=== PATIENT | female | born 1935 | race Asian ===

== ENCOUNTER 2020-08-24 02:20 | Emergency (ER) | payer OTHER ==
[~2020-08-24] VITALS: Ht 162.6 cm; Wt 68.0 kg
[2020-08-24 02:26] VITALS: BP 172/93
[2020-08-24] MEDS ORDERED: hydrALAZINE 20 MG/ML VIAL IVP ONE (03:00)
[2020-08-24] MEDS ORDERED: ENALAPRILAT 2.5 MG/2 ML VIAL IVP ONE (03:00)
[2020-08-24 03:15] LABS: BASOPHILS # (AUTO) 0.1 K/uL (0.00-0.22); BASOPHILS % (AUTO) 0.9 % (0.0-2.0); EOSINOPHILS # (AUTO) 0.3 K/uL (0-0.4); EOSINOPHILS % (AUTO) 2.4 % (0.0-4.0); HEMATOCRIT 39.8 % (36-48); HEMOGLOBIN 13.7 g/dL (12.0-16.0); LYMPHOCYTES # (AUTO) 2.7 K/uL (2.5-16.5); LYMPHOCYTES % (AUTO) 24.5 % (20.5-51.1); MEAN CORPUSCULAR HEMOGLOBIN 32 pg (27-31); MEAN CORPUSCULAR HGB CONC 35 g/dL (33-37); MEAN CORPUSCULAR VOLUME 93.8 fL (80-94); MONOCYTES # (AUTO) 0.8 K/uL (0.8-1.0); MONOCYTES % (AUTO) 7.3 % (1.7-9.3); NEUTROPHILS # (AUTO) 7.1 K/uL (1.8-7.7); NEUTROPHILS % (AUTO) 64.9 % (42.2-75.2); PLATELET COUNT (AUTO) 358 K/uL (140-450); RED BLOOD CELL COUNT(AUTO) 4.25 MIL/uL (4.20-5.40); RED CELL DISTRIBUTION WIDTH 13.5 % (11.6-13.7); WHITE BLOOD COUNT (AUTO) 10.9 K/uL (4.8-10.8)
[2020-08-24 03:31] LABS: ALBUMIN 3.9 g/dL (3.4-5.0); ANION GAP 12.1 (8-16); ASPARTATE AMINOTRANSFERASE 15 U/L (15-37); CARBON DIOXIDE 30.8 mmol/L (21-32); CHLORIDE 98 mmol/L (98-107); CHOL/HDL RATIO 4.2 (1-4.5); CREATININE 0.8 mg/dL (0.6-1.3); GLUCOSE 164 mg/dL (74-106); HDL CHOLESTEROL 50 mg/dL (40-60); LDL (CALC) 137 mg/dL (60-100); POTASSIUM 3.9 mmol/L (3.5-5.1); SODIUM SERUM 137 mmol/L (136-145); TOTAL BILIRUBIN 0.5 mg/dL (0.0-1.0); TRIGLYCERIDES 115 mg/dL (30-150); UREA NITROGEN, BLOOD 17 mg/dL (7-18)
[2020-08-24 04:02] LABS: APPEARANCE,URINE CLEAR (CLEAR); BILIRUBIN,URINE NEGATIVE (NEGATIVE); BLOOD, URINE TRACE-I (NEGATIVE); COLOR,URINE YELLOW (YELLOW); LEUKOCYTE ESTERASE ,URINE NEGATIVE (NEGATIVE); NITRITE, URINE NEGATIVE (NEGATIVE); UGLUCOSE NEGATIVE (NEGATIVE)
[2020-08-24] MEDS ORDERED: HYDR-39 PO (04:11)
[2020-08-24] MEDS ORDERED: SIMV-33 PO (04:11)
[2020-08-24 04:25] VITALS: BP 135/78
== END 2020-08-24 04:23 | disposition home or self-care (01) ==
LOC: MED 02:20
DX: I10 Essential (primary) hypertension (principal); E78.5 Hyperlipidemia, unspecified; R51.9 Headache, unspecified; Z88.0 Allergy status to penicillin; Z79.899 Other long term (current) drug therapy
CPT/HCPCS: 36415; 80053; 80061; 81003; 85025; 93005; 96374; 96375; 99284; J0360; J3490

== ENCOUNTER 2020-09-11 20:50 | Emergency (ER) | payer OTHER ==
[~2020-09-11] VITALS: Ht 162.6 cm; Wt 68.0 kg
[~2020-09-11 20:50] MED LIST: HYDR-39 PO; SIMV-33 PO
[2020-09-11 21:01] VITALS: BP 157/89
--- NOTE | 2020-09-11 21:01 | NUR ---
TO BED VIA WHEELCHAIR
[2020-09-11 22:03] LABS: BASOPHILS % (AUTO) 0.3 % (0.0-2.0); EOSINOPHILS # (AUTO) 0.1 K/uL (0-0.4); EOSINOPHILS % (AUTO) 0.6 % (0.0-4.0); HEMATOCRIT 37.2 % (36-48); HEMOGLOBIN 12.9 g/dL (12.0-16.0); LYMPHOCYTES # (AUTO) 2.2 K/uL (2.5-16.5); LYMPHOCYTES % (AUTO) 18.4 % (20.5-51.1); MEAN CORPUSCULAR HEMOGLOBIN 32 pg (27-31); MEAN CORPUSCULAR HGB CONC 35 g/dL (33-37); MEAN CORPUSCULAR VOLUME 93.1 fL (80-94); MONOCYTES # (AUTO) 0.9 K/uL (0.8-1.0); NEUTROPHILS # (AUTO) 8.6 K/uL (1.8-7.7); NEUTROPHILS % (AUTO) 72.7 % (42.2-75.2); PLATELET COUNT (AUTO) 410 K/uL (140-450); RED BLOOD CELL COUNT(AUTO) 3.99 MIL/uL (4.20-5.40); RED CELL DISTRIBUTION WIDTH 13.5 % (11.6-13.7); WHITE BLOOD COUNT (AUTO) 11.8 K/uL (4.8-10.8)
--- NOTE | 2020-09-11 22:05 | NUR ---
85 Y/O FEMALE BIB DAUGHTER TO ED C/O ABDOMINAL PAIN W/ BLOATING AND CONSTIPATION. PER PT'S DAUGHTER PT HAS NOT HAD BM X 1 DAY. ABD ROUND, SOFT AND NONTENDER UPON PALPATION. NORMOACTIVE BOWEL SOUNDS. PT RESTING IN BED, LOCKED AND IN LOWEST POSITION ,HOB ELEVATED, SIDE RAIL X2 FOR PT SAFETY. VSS. DAUGHTER AT BEDSIDE. PMH: HTN AX: PCN, SULFA
[2020-09-11 22:18] LABS: ALBUMIN 3.6 g/dL (3.4-5.0); ANION GAP 10.4 (8-16); ASPARTATE AMINOTRANSFERASE 15 U/L (15-37); CARBON DIOXIDE 29.5 mmol/L (21-32); CHLORIDE 90 mmol/L (98-107); CREATININE 0.7 mg/dL (0.6-1.3); GLUCOSE 131 mg/dL (74-106); LIPASE 122 U/L (73-393); SODIUM SERUM 127 mmol/L (136-145); TOTAL BILIRUBIN 0.6 mg/dL (0.0-1.0); UREA NITROGEN, BLOOD 17 mg/dL (7-18)
[2020-09-11 22:19] LABS: POTASSIUM 2.9 mmol/L (3.5-5.1)
[2020-09-11] MEDS ORDERED: KCL 20 MEQ/WATER INJ PREMIX 100 ML IV ONE (22:25)
[2020-09-11 22:51] LABS: APPEARANCE,URINE CLEAR (CLEAR); BILIRUBIN,URINE NEGATIVE (NEGATIVE); BLOOD, URINE NEGATIVE (NEGATIVE); COLOR,URINE YELLOW (YELLOW); LEUKOCYTE ESTERASE ,URINE NEGATIVE (NEGATIVE); NITRITE, URINE NEGATIVE (NEGATIVE); UGLUCOSE 2+ (NEGATIVE)
[2020-09-11] MEDS ORDERED: DOCU-299 PO (23:02)
[2020-09-11] MEDS ORDERED: BEN10 PO (23:02)
--- NOTE | 2020-09-11 23:45 | NUR ---
Pt taken to restroom by daughter via w/c .
--- NOTE | 2020-09-11 23:55 | NUR ---
Pt reconnected to cardiac nurse, pulse ox and IVF.
--- NOTE | 2020-09-12 00:48 | NUR ---
IV removed, catheter intact and site benign. Applied folded 4x4 gauze and tape to stop bleeding.
--- NOTE | 2020-09-12 00:52 | NUR ---
Patient discharged with v/s stable. Written and verbal after care instructions given and explained. Patient alert, oriented and verbalized understanding of instructions. Wheel Chair Assisted with by caregiver. All questions addressed prior to discharge. ID band removed. Patient advised to follow up with PMD. Rx of bentyl & colace given. Patient educated on indication of medication including possible reaction and side effects. Opportunity to ask questions provided and answered.
[2020-09-12 00:53] VITALS: BP 155/85
== END 2020-09-12 00:52 | disposition home or self-care (01) ==
LOC: MED 20:50
DX: E87.6 Hypokalemia (principal); K59.00 Constipation, unspecified; R14.0 Abdominal distension (gaseous); I10 Essential (primary) hypertension; Z88.0 Allergy status to penicillin; Z79.899 Other long term (current) drug therapy
CPT/HCPCS: 36415; 74176; 80053; 81003; 83690; 85025; 96365; 96366; 99284; J3480